=== PATIENT | male | born 1990 ===

== ENCOUNTER → 2020-11-23 | Outpatient (CLI) | payer OTHER | END | disposition home or self-care (01) | LOC: LAB 13:35 | PROVIDERS: ATTEND Emergency Medicine Pediatric Emergency Medicine | DX: Z03.818 Encounter for observation for suspected exposure to other biological agents ruled out (principal) ==

== ENCOUNTER 2020-11-30 08:49 | Outpatient (CLI) | payer OTHER | END 2020-11-30 10:00 | disposition home or self-care (01) | LOC: LAB 08:49 | PROVIDERS: ATTEND Internal Medicine | DX: Z03.818 Encounter for observation for suspected exposure to other biological agents ruled out (principal) ==

== ENCOUNTER 2020-12-01 08:36 | Outpatient (CLI) | payer OTHER | END 2020-12-01 12:00 | disposition home or self-care (01) | LOC: LAB 08:36 | DX: U07.1 COVID-19 (principal) ==

== ENCOUNTER 2021-03-30 07:15 | Outpatient (CLI) | payer OTHER | END 2021-03-30 15:00 | disposition home or self-care (01) | LOC: EDBD 07:15 → LAB 07:15 | PROVIDERS: ATTEND Emergency Medicine Pediatric Emergency Medicine | DX: Z03.818 Encounter for observation for suspected exposure to other biological agents ruled out (principal) ==

== ENCOUNTER → 2021-04-04 07:51 | Outpatient (CLI) | payer OTHER | END | disposition home or self-care (01) | LOC: LAB 07:51 | PROVIDERS: ATTEND Emergency Medicine Pediatric Emergency Medicine | DX: Z03.818 Encounter for observation for suspected exposure to other biological agents ruled out (principal) ==